=== PATIENT | male | born 1995 | race Two or more races ===

== ENCOUNTER 2023-04-30 06:03 | Observation (INO) | payer OTHER ==
[2023-04-30] MEDS ORDERED: SODIUM CHLORIDE 1,000 ML IV ONE (06:24)
[2023-04-30] MEDS ORDERED: ONDANSETRON 4 MG/2 ML VIAL IVPUSH ONE (06:25)
[2023-04-30] MEDS ORDERED: ONDANSETRON 4 MG/2 ML VIAL ONE (06:26)
[2023-04-30 09:25] LABS: HEMATOCRIT 54.2 % (35.4-49); HEMOGLOBIN 18.4 G/dL (11.7-16.9); MCH 30.5 pg (25.7-33.7); MEAN CELL VOLUME 89.8 fl (80-96); MEAN PLT VOLUME 9.2 fl (7.5-11.1); PLATELET COUNT 138.4 10^3/uL (134-434); RBC 6.04 10^6/uL (4.00-5.60); RDW 13.9 % (11.9-15.9); WHITE BLOOD COUNT 4.6 10^3/uL (4.0-10.8)
[2023-04-30 09:46] LABS: ALBUMIN 5.3 g/dl (3.4-5.0); BILIRUBIN,TOTAL 0.7 mg/dl (0.2-1); CALCIUM 10.6 mg/dl (8.5-10.1); CREATININE 2.1 mg/dl (0.6-1.3); POTASSIUM 3.3 mmol/L (3.5-5.1); TOT PROT 8.8 g/dl (6.4-8.2)
[2023-04-30] MEDS ORDERED: SODIUM CHLORIDE 0.9% 500 ML INFUS.BAG IV ONE (09:52)
[2023-04-30] MEDS ORDERED: POTASSIUM CHLORIDE ORAL LIQUID 20 MEQ/15 ML PO ONE (09:52)
[2023-04-30] MEDS ORDERED: METOCLOPRAMIDE HCL INJECTION 10 MG/2 ML VIAL IVPB ONE (09:56)
[2023-04-30] MEDS ORDERED: METOCLOPRAMIDE HCL INJECTION 10 MG/2 ML VIAL ONE (10:07)
[2023-04-30] MEDS ORDERED: POTASSIUM CHLORIDE ORAL LIQUID 20 MEQ/15 ML ONE (10:14)
[2023-04-30] MEDS ORDERED: OSELTAMIVIR PHOSPHATE 75 MG CAPSULE PO ONE (11:35)
[2023-04-30 12:02] LABS: EPITHELIAL CELLS 0-5 /hpf; URINE MUCUS FEW
[2023-04-30] MEDS ORDERED: SODIUM CHLORIDE 1,000 ML IV SCH (12:15)
[2023-04-30] MEDS ORDERED: ACETAMINOPHEN 325 MG TABLET (FP) PO PRN (12:23)
[2023-04-30 14:04] VITALS: BMI 20.9
[2023-04-30] MEDS: SODIUM CHLORIDE 1,000 ML IV SCH (14:16)
[2023-04-30] MEDS: ENOXAPARIN NA (PORCINE) 30 MG/0.3 ML DISP.SYRIN SQ SCH (14:17)
[2023-04-30] MEDS ORDERED: ONDANSETRON 4 MG/2 ML VIAL IVPUSH PRN (14:31)
[2023-04-30] MEDS ORDERED: MAGNESIUM SULF 50% (8.12 MEQ/2 ML-1 GM VIAL) IVPB ONE (14:45)
[2023-04-30 15:26] LABS: URINE BENZODIAZEPINES NEGATIVE (NEGATIVE)
[2023-04-30 15:27] LABS: METHADONE, UR NEGATIVE (NEGATIVE); OPIATES, URI NEGATIVE (NEGATIVE); PHENCYCLIDINE,URINE NEGATIVE (NEGATIVE); URINE BARBITURATES NEGATIVE (NEGATIVE)
[2023-04-30 15:29] LABS: COCAINE, UR NEGATIVE (NEGATIVE)
[2023-04-30 15:31] LABS: URINE AMPHETAMINES NEGATIVE (NEGATIVE)
[2023-04-30 19:34] LABS: CALCIUM 8.4 mg/dl (8.5-10.1); POTASSIUM 3.5 mmol/L (3.5-5.1)
[2023-04-30] MEDS: OSELTAMIVIR PHOSPHATE 30 MG CAPSULE PO SCH (21:02)
[2023-04-30] MEDS ORDERED: OSELTAMIVIR PHOSPHATE 75 MG CAPSULE PO SCH (22:00)
[2023-05-01] MEDS: SODIUM CHLORIDE 1,000 ML IV SCH (06:57)
[2023-05-01 09:57] VITALS: BP 110/75; PULSE 73; RESP 18; TEMP 98.4
[2023-05-01] MEDS ORDERED: OSELTAMIVIR PHOSPHATE 75 MG CAPSULE PO ONE (10:44)
[2023-05-01] MEDS: ENOXAPARIN NA (PORCINE) 30 MG/0.3 ML DISP.SYRIN SQ SCH (10:55)
[2023-05-01] MEDS: OSELTAMIVIR PHOSPHATE 30 MG CAPSULE PO SCH (11:43)
== END 2023-05-01 11:55 | disposition home or self-care (01) ==
LOC: FER 06:03 → FM/S 10:13
PROVIDERS: ADMIT Internal Medicine
PROC: 3E033GC Introduction of Other Therapeutic Substance into Peripheral Vein, Percutaneous Approach (ICD-10-PCS; principal; 2023-04-30)
PROC: 3E0337Z Introduction of Electrolytic and Water Balance Substance into Peripheral Vein, Percutaneous Approach (ICD-10-PCS; 2023-04-30)
DX: J09.X2 Influenza due to identified novel influenza A virus with other respiratory manifestations (principal); F12.20 Cannabis dependence, uncomplicated; E86.0 Dehydration; E87.6 Hypokalemia; G40.909 Epilepsy, unspecified, not intractable, without status epilepticus; F17.210 Nicotine dependence, cigarettes, uncomplicated; N17.9 Acute kidney failure, unspecified
CPT/HCPCS: 0241U-QW; 36415; 71046-TC-FY; 80048; 80053; 80307; 81003; 81015; 82550; 82553; 82570; 83735; 83935; 84156; 84300; 85027; 93005; 96361; 96374; 96375; 99285-25; G0378